=== PATIENT | female | born 1965 | race Caucasian/White ===

== ENCOUNTER 2017-07-13 16:23 | Emergency (ER) | END 2017-07-13 17:35 | disposition home or self-care (01) ==

== ENCOUNTER 2017-10-03 16:56 | Emergency (ER) | END 2017-10-04 00:23 | disposition home or self-care (01) ==

== ENCOUNTER 2018-09-30 17:07 | Emergency (ER) | payer MEDICAID ==
[~2018-09-30] VITALS: Ht 167.6 cm; Wt 89.4 kg
[~2018-09-30 17:07] MED LIST: ACET-1753; HYDR-3498 PO; HYDR-3980 PO; IBUP-1542 PO; NAPR-985 PO; ONDA4TAB13 PO; ONDA4TAB14 PO; PRED20TA PO; SENN-120 PO
[2018-09-30 17:23] VITALS: BP 127/69; PULSE 77; RESP 18; Ht 167.6 cm; Wt 89.4 kg
== END 2018-09-30 17:46 | disposition home or self-care (01) ==
LOC: E/R 17:07
DX: J02.9 Acute pharyngitis, unspecified (principal)
CPT/HCPCS: 99283

== ENCOUNTER 2018-10-23 20:03 | Emergency (ER) | payer MEDICAID ==
[~2018-10-23] VITALS: Ht 165.1 cm; Wt 91.3 kg
[~2018-10-23 20:03] MED LIST changes: +DOXY-214 PO; +HYDR-4011 PO
[2018-10-23 20:53] VITALS: Ht 165.1 cm; Wt 91.3 kg
[2018-10-23] MEDS ORDERED: ONDANSETRON 4 MG INJ IV STA (22:16)
[2018-10-23] MEDS ORDERED: SOD CHLORIDE 0.9% 1,000 ML IV STA (22:16)
[2018-10-23] MEDS ORDERED: morphine 4 MG/ML VIAL IV STA (22:16)
[2018-10-24] MEDS ORDERED: CEFTRIAXONE 250 MG INJ IM ONE (00:30)
[2018-10-24 02:03] VITALS: BP 107/62; PULSE 86; RESP 16
== END 2018-10-24 02:03 | disposition home or self-care (01) ==
LOC: E/R 20:03
DX: D25.9 Leiomyoma of uterus, unspecified (principal); N73.9 Female pelvic inflammatory disease, unspecified
CPT/HCPCS: 36415; 74176; 76830; 76856; 80053; 81001; 83690; 85025; 87591; 96372; 96374; 96375; J0696; J2270; J2405; J7030; Z7502; 93005